=== PATIENT | female | born 1980 | race Caucasian/White ===

== ENCOUNTER 2019-09-20 16:37 | Outpatient (CLI) | payer OTHER, SELFPAY ==
--- NOTE | ~2019-09-20 | MM_ITS ---
EXAMINATION: MM screening maria luisa BI w patience HISTORY: Screening mammogram TECHNIQUE: Bilateral rotated lateral cc views. Craniocaudal and mediolateral oblique 3-D tomosynthesi s images were obtained and synthetic 2-D images were generated. CAD analysis was submitted and interp reted. COMPARISON: No prior mammogram is available for comparison at this institution. BREAST PARENCHYMAL COMPOSITION: The breasts are heterogeneously dense, which may obscure small masses . FINDINGS: There is an asymmetric approximately 1.3 cm opacity in the posterior superior aspect of the left breast on MLO projection; diagnostic left mammogram and left breast ultrasound examination are recommended. A few punctate benign-appearing microcalcifications are noted. Otherwise no suspicious mass or architectural distortion, malignant calcification, skin thickening or retraction is evident. IMPRESSION: 1. 1.3 cm asymmetric opacity in the posterior superior left breast on craniocaudal view 2. Diagnostic left mammogram and left breast ultrasound examination are recommended. BI-RADS Category 0: Incomplete: Needs additional imaging evaluation... Reviewed, dictated and finalized at location A. GER INTERNAL IMPRESSION: 1. 1.3 cm asymmetric opacity in the posterior superior left breast on craniocau ewa view 2. Diagnostic left mammogram and left breast ultrasound examination are recomme nded. BI-RADS Category 0: Incomplete: Needs additional imaging evaluation...
== END 2019-09-20 16:38 | disposition home or self-care (01) ==
DX: Z12.31 Encounter for screening mammogram for malignant neoplasm of breast (principal); R92.8 Other abnormal and inconclusive findings on diagnostic imaging of breast
CPT/HCPCS: 77063; 77067

== ENCOUNTER 2019-10-21 12:44 | Outpatient (CLI) | payer OTHER, SELFPAY ==
--- NOTE | ~2019-10-21 | MMUS_ITS ---
EXAMINATION: MM diagnostic mammo unilat LT, US breast LT limited HISTORY: Left breast mass on screening mammogram TECHNIQUE: Additional 3-D tomosynthesis images of the left breast were performed and synthetic 2-D im ages were generated. CAD analysis was submitted and interpreted. High resolution limited left breast ultrasound was performed. COMPARISON: 09/20/2019, 09/12/2011 FINDINGS: MAMMOGRAPHIC FINDINGS: There is a 1.2 x 1.1 cm oval, low density, obscured mass in the far upper outer quadrant of the breas t at the 1:00 location 8 cm from the nipple. No associated architectural distortion or suspicious boubacar cification are identified. ULTRASOUND: There is a 1.5 x 0.5 cm oval, circumscribed, parallel, hypoechoic mass with no posterior features or internal vascularity at the 1:00 location in the far outer breast in the region of the mammographic f inding. There is a 5 mm cyst at the 12:00 location 2 cm from the nipple. An 8 mm x 2 mm oval, circums cribed, parallel, hypoechoic mass with no posterior features or internal vascularity is present at th e 2:00 location 9 cm from the nipple. Dilated subareolar ducts are noted. IMPRESSION: 1. Probably benign left breast masses. 2. Recommend 6 month follow-up left diagnostic mammogram and ultrasound. BI-RADS category 3, probably benign findings. Reviewed, dictated and finalized at location A. IMPRESSION: 1. Probably benign left breast masses. 2. Recommend 6 month follow-up left diagnostic mammogram and ultrasound. BI-RADS category 3, probably benign findings.
== END 2019-10-21 12:45 | disposition home or self-care (01) ==
DX: R92.8 Other abnormal and inconclusive findings on diagnostic imaging of breast (principal)
CPT/HCPCS: 76642; 77065

== ENCOUNTER 2020-11-18 14:35 | Emergency (ER) | payer OTHER, SELFPAY ==
[2020-11-18 14:49] VITALS: BP 143/86; PULSE 97; RESP 16; TEMP 37; O2SAT 100
--- NOTE | 2020-11-18 15:02 | ED.GENADULT ---
HPI - General Adult General Chief complaint: Dental/Oral Stated complaint: R FACIAL SWELLING Time Seen by Provider: 11/18/20 15:03 Source: patient and RN notes reviewed Mode of arrival: ambulatory Limitations: no limitations History of Present Illness HPI narrative: 39-year-old female presents with complaints of dental pain and swelling for 1 day. Dudley reports increasing RT sided facial swelling this morning. Tylenol, last on 11/17/2020. Denies any drainage. No fever. RT upper jaw swelling. No neck swelling. No limitation with speaking or swallowing. Tolerating po intake well. Has history of dental caries. Has not seen a dentist recently. No dental trauma. No oral lesions. Exacerbating factors consist of chewing on RT. No relieving factor. Upper dentures. LMP unknown due to IUD in place. Remains active. The patient reports she have not been diagnosed with COVID-19. The patient reports she received Deshawn-Deshawn COVID-19 vaccine 10/15/2020. The patient reports she is not waiting for the results of a COVID-19 lab test. The patient reports she do not have chills, weakness, or fatigue. The patient reports she do not have a new or worsening cough or shortness of breath. Denies chest pain. The patient reports she do not have any rhinorrhea, congestion, sore throat, loss of taste or smell, nausea, vomiting, abdominal pain, and diarrhea. Denies recent traveling. Denies concerns for COVID-19 or exposures been home with limited outdoor exposure except for essential household needs, work, and return home. At this time, patient is not suspected of having COVID-19. Some parts of this dictation were generated by voice recognition software and may contain typographical and/or grammatical inaccuracies. Related Data Home Medications Medication Instructions Recorded Confirmed chlorpheniramine 2 2 tablet PO ONCE 07/11/19 02/09/20 mg-phenylephrine 5 mg-acetaminophen 325 mg tablet levonorgestrel 20 mcg/24 hours (6 1 device I-UTERINE ONCE 07/11/19 02/09/20 yrs) 52 mg intrauterine device levothyroxine 88 mcg tablet 88 mcg PO DAILY 07/11/19 02/09/20 metoprolol succinate 50 mg capsule 50 mg PO QPM each 07/11/19 02/09/20 sprinkle, ext. release 24 hr Allergies Allergy/AdvReac Type Severity Reaction Status Date / Time No Known Allergies Allergy Verified 11/18/20 14:40 Review of Systems Review of Systems: Narrative: CONSTITUTIONAL: Denies fever, chills, sweats. EYES: Denies visual changes, redness, discharge. ENT: Denies rhinorrhea, congestion, sore throat, otalgia. Complains of RT upper dental pain and swelling. CARDIOVASCULAR: Denies chest pain, palpitations, edema. RESPIRATORY: Denies dyspnea, wheezing, cough. GASTROINTESTINAL: Denies abdominal pain, nausea, vomiting, diarrhea. SKIN: Denies rash or itching. MUSCULOSKELETAL: Denies acute back pain, joint pain, or myalgia. NEUROLOGIC: Denies numbness or focal weakness. PSYCHIATRIC: Denies anxiety or depression. All systems reviewed & are unremarkable except as noted in HPI and below. FOR[facility]LY [facility] Past Medical History Medical History (Updated 11/26/20 @ 21:11 by BRIDGER Clements) Arm fracture, right compound fracture Essential (primary) hypertension History of gastroesophageal reflux (GERD) Hypothyroid Leg fracture, right compound fracture Nicotine dependence Surgical History Surgical History (Updated 11/18/20 @ 15:15 by BRIDGER Clements) Hx of appendectomy Family History Family History Father Hypertension Family history of chronic obstructive pulmonary disease Grandparent Family history of pancreatic cancer Mother Family history of malignant neoplasm of breast in first degree relative Sibling Breast cancer Social History Social History (Updated 11/18/20 @ 15:18 by BRIDGER Clements) Smoking packs per day: 0.5 Smoking cigarettes per day: 10.0
== END 2020-11-18 15:30 | disposition home or self-care (01) ==
PROVIDERS: Emergency Provider Nurse Practitioner Family
DX: K05.10 Chronic gingivitis, plaque induced (principal); F17.210 Nicotine dependence, cigarettes, uncomplicated; I10 Essential (primary) hypertension; K21.9 Gastro-esophageal reflux disease without esophagitis; E03.9 Hypothyroidism, unspecified
CPT/HCPCS: 99213; G0463

== ENCOUNTER 2022-01-17 18:24 | Emergency (ER) | payer OTHER, SELFPAY ==
[2022-01-17 18:29] VITALS: BP 160/80; PULSE 91; RESP 16; TEMP 36.3; O2SAT 100
--- NOTE | 2022-01-17 19:03 | ED.EYEPROB ---
HPI - Eye Problem General Chief complaint: Eye Problems Stated complaint: R EYELID SWELLING/DRAINAGE Time Seen by Provider: 01/17/22 19:03 Source: patient, RN notes reviewed and old records reviewed Mode of arrival: ambulatory Limitations: no limitations History of Present Illness HPI Narrative: 41 year old female with complaints of swelling with redness of right eye with red dot on inner upper eyelid for the past 2 days with increase swelling noted today. Patient denies any injury to her right eye or any known foreign body to her eye or any sting or bite to her eyelid. Patient denies any change in vision.. Related Data Home Medications Medication Instructions Recorded Confirmed chlorpheniramine 2 2 tablet PO ONCE 07/11/19 02/09/20 mg-phenylephrine 5 mg-acetaminophen 325 mg tablet (Allergy Relief Multi-Symptom) levonorgestrel 20 mcg/24 hours (7 1 device intrauterine ONCE 07/11/19 02/09/20 yrs) 52 mg intrauterine device (Mirena) levothyroxine 88 mcg tablet 88 mcg PO DAILY 07/11/19 02/09/20 metoprolol succinate 50 mg capsule 50 mg PO QPM 07/11/19 02/09/20 sprinkle, ext. release 24 hr Allergies Allergy/AdvReac Type Severity Reaction Status Date / Time No Known Allergies Allergy Verified 11/18/20 14:40 Review of Systems Review of Systems: CONSTITUTIONAL: Denies fever, chills, or sweats. EYES: Denies visual changes, redness, or discharge positive for some swelling around right eye with swelling to upper right eyelid with small red lesion to inner upper eye lid with no drainage noted, no change in vision. ENT: Denies rhinorrhea, congestion, sore throat, or otalgia. CARDIOVASCULAR: Denies chest pain, palpitations, or edema. RESPIRATORY: Denies cough or dyspnea. GASTROINTESTINAL: Denies abdominal pain, nausea, vomiting, or diarrhea. GENITOURINARY: Denies dysuria or hematuria. SKIN: Denies rash or itching. MUSCULOSKELETAL: Denies back pain, joint pain, or myalgia. NEUROLOGIC: Denies headache, numbness, or weakness. PSYCHIATRIC: Denies anxiety or depression. [facility] Past Medical History Medical History Arm fracture, right compound fracture Essential (primary) hypertension History of gastroesophageal reflux (GERD) Hypothyroid Leg fracture, right compound fracture Nicotine dependence Surgical History Surgical History Hx of appendectomy Family History Family History Father Hypertension Family history of chronic obstructive pulmonary disease Grandparent Family history of pancreatic cancer Mother Family history of malignant neoplasm of breast in first degree relative Sibling Breast cancer Social History Social History Smoking packs per day: 0.5 Smoking cigarettes per day: 10.0 Years smoked: 25 Smoking pack-years: 12.50 Smoking status: Current every day smoker Tobacco type: cigarettes Second hand tobacco smoke exposure: No Additional smoking assessment comments: Dudley reports smoking since she was 14 years old Alcohol intake: current Substance use: never Substance use type: does not use Gender identity (if verbalized by the patient): Female Comments At time of signature, agree with nursing past medical, surgical, social and family history. There is no relevant family history pertinent to the presenting complaint Exam Narrative: GENERAL: Well-appearing, well-nourished, and in no acute distress. HEAD: Normocephalic, atraumatic. EYES: PERRLA and EOMI. swelling to right upper eyelid small red dot noted to inner aspect of right upper eyelid, patient denies any known bug bite or sting.no change in vision, no drainage noted ENT: Nares clear, no rhinorrhea or epistaxis. Mucous membranes moist. NECK: Supple. no lymphadenopathy CHEST: Clear to auscu
== END 2022-01-17 19:26 | disposition home or self-care (01) ==
PROVIDERS: Emergency Provider Registered Nurse
DX: H02.841 Edema of right upper eyelid (principal); L98.9 Disorder of the skin and subcutaneous tissue, unspecified; F17.210 Nicotine dependence, cigarettes, uncomplicated; I10 Essential (primary) hypertension; K21.9 Gastro-esophageal reflux disease without esophagitis; E03.9 Hypothyroidism, unspecified
CPT/HCPCS: 99213; G0463

== ENCOUNTER 2023-02-27 15:21 | Emergency (ER) | payer OTHER, SELFPAY ==
--- NOTE | 2023-02-27 15:26 | ED.URI ---
HPI - URI/Sore Throat General Chief Complaint: Upper Respiratory Infection Stated Complaint: SORE THROAT/EARACHE Time Seen by Provider: 02/27/23 15:25 Source: patient Mode of arrival: ambulatory Limitations: no limitations History of Present Illness HPI Narrative: Dudley is a 42-year-old female patient presenting to the clinic today with complaints of sore throat, cough, runny nose, bilateral earache times 3-4 days. She reports that her 12-year-old daughter at home has strep. MD elicited complaint: cough, sore throat, rhinorrhea and nasal congestion Related Data Home Medications Medication Instructions Recorded Confirmed levothyroxine 88 mcg tablet 88 mcg PO DAILY 07/11/19 02/27/23 etonogestrel 68 mg subdermal 1 implant subdermal ONCE 02/24/22 02/27/23 implant (Nexplanon) omeprazole 20 mg capsule,delayed 20 mg PO DAILY 02/24/22 02/27/23 release Allergies Allergy/AdvReac Type Severity Reaction Status Date / Time No Known Allergies Allergy Verified 08/26/22 16:05 Review of Systems Review of Systems: Pertinent positives per HPI. Patient denies any fever, chills, rash, headache, visual changes, dizziness, shortness of breath, chest pain, palpitations, nausea, vomiting, diarrhea, constipation, abdominal pain, or any urinary issues. FOR[facility]LY [facility], [facility] Past Medical History Medical History Arm fracture, right compound fracture Essential (primary) hypertension Former smoker GERD without esophagitis History of gastroesophageal reflux (GERD) Hyperlipidemia Hypothyroid Leg fracture, right compound fracture Surgical History Surgical History H/O knee surgery (~1989) Hx of appendectomy (~1986) Family History Family History Father Hypertension Family history of chronic obstructive pulmonary disease Grandparent Family history of pancreatic cancer Mother Family history of malignant neoplasm of breast in first degree relative Sibling Breast cancer Social History Social History Social History: Dudley is single, she has an 11 year old daughter. 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 13 pack-year smoking history, he quit smoking in 2020. Smoking packs per day: 0.5 Smoking cigarettes per day: 10.0 Years smoked: 25 Smoking pack-years: 12.50 Smoking status: Former smoker Tobacco type: e-cigarettes/vaping Second hand tobacco smoke exposure: No Smoking end date: 08/10/20 Additional smoking assessment comments: Dudley reports smoking since she was 14 years old Alcohol intake: current Substance use: never Substance use type: does not use Lack of Transportation: No Lack of Food: Never True Current Housing: I Have Housing Concerned About Future Housing: No Difficulty Paying Gas/Electric Bills: No Difficulty Paying for Meds: No Currently Unemployed: No Education: Trade/Vocational Certificate Difficulty w/ Childcare or Family Care: No Living arrangements: with family Additional living arrangements comments: Daughter Occupation/Education: occupation Additional occupation/education comments: [employer] / [employer] Gender identity (if verbalized by the patient): Female Agree to blood products: Yes Comments At the time of my signature, I reviewed and agree with the nursing past medical, surgical, social, and family history. There is no relevant family history pertinent to the patient complaint. Exam Narrative: General: Well-developed, well nourished, in no apparent distress Head: Normocephalic, atraumatic Eyes: Pupils equally round and reactive to light bilaterally, EOM intact, sclera and conjunctive clear, no discharge, lids normal Ears: TMs intact and congested, ear canals clear, no drainage, grossly hearing normal. Nose: Na
[2023-02-27 15:40] VITALS: BP 163/85; PULSE 94; RESP 16; TEMP 36.4; O2SAT 99
== END 2023-02-27 15:56 | disposition home or self-care (01) ==
PROVIDERS: Emergency Provider Nurse Practitioner Family
DX: J06.9 Acute upper respiratory infection, unspecified (principal); J02.9 Acute pharyngitis, unspecified; H92.03 Otalgia, bilateral; Z87.891 Personal history of nicotine dependence; I10 Essential (primary) hypertension; K21.9 Gastro-esophageal reflux disease without esophagitis; E78.5 Hyperlipidemia, unspecified; E03.9 Hypothyroidism, unspecified
CPT/HCPCS: 87081; 87880; 99213; G0463

== ENCOUNTER 2023-11-19 15:20 | Outpatient (CLI) | payer OTHER, SELFPAY ==
--- NOTE | ~2023-11-19 | US_ITS ---
EXAMINATION: US carotid duplex BI DATE: 11/19/2023 15:40 INDICATION: Other specified symptoms and signs involving the circulatory system. TECHNIQUE: Grayscale, color Doppler, and pulsed Doppler images of the cervical carotid arteries were obtained. The degree of vessel stenosis is placed in one of the following categories: normal, <50%, 5 0-69%, >=70% but less than near-occlusion, near-occlusion, or total occlusion. Note that percent sten osis relative to normal distal artery lumen diameter is indirectly measured from velocity measurement s as described by Finesse, et al. Radiology 2003; 229:340-346. COMPARISON: None. FINDINGS: RIGHT: The right common carotid artery (CCA) peak systolic velocity (PSV) is 78 cm/s. The right internal car otid artery (ICA) PSV is 368 cm/s. The right ICA end-diastolic velocity (EDV) is 135 cm/s. The right ICA/CCA PSV ratio is 4.7. Grayscale and color Doppler images yield an estimate of >=50% diameter redu ction from plaque in the ICA. There is antegrade flow in the right vertebral artery. LEFT: The left CCA PSV is 105 cm/s. The left ICA PSV is 116 cm/s. The left ICA EDV is 42 cm/s. The left ICA /CCA PSV ratio is 1.1. Grayscale and color Doppler images yield an estimate of <50% diameter reductio n from plaque in the ICA. There is antegrade flow in the left vertebral artery. IMPRESSION: 1. >=70% stenosis in the right internal carotid artery, but less than near occlusion. 2. <50% stenosis in the left internal carotid artery. Reviewed, dictated and finalized at location A. IMPRESSION: 1. >=70% stenosis in the right internal carotid artery, but less than near occl usion. 2. <50% stenosis in the left internal carotid artery.
== END 2023-11-19 15:21 ==
PROVIDERS: PCP Nurse Practitioner Family; Visit Provider Nurse Practitioner Family
DX: R09.89 Other specified symptoms and signs involving the circulatory and respiratory systems (principal); I65.23 Occlusion and stenosis of bilateral carotid arteries
CPT/HCPCS: 93880

== ENCOUNTER 2024-04-04 17:46 | Emergency (ER) | payer OTHER, SELFPAY ==
[2024-04-04] VITALS (8 sets, daily range): BP systolic 104–140; BP diastolic 61–88; PULSE 59–113; RESP 15–20; TEMP 36.4–36.6; O2SAT 99–100
--- NOTE | ~2024-04-04 | CT_ITS ---
EXAMINATION: CTA brain carotid DATE: 04/04/2024 21:40 INDICATION: Syncope. Recent carotid endarterectomy. TECHNIQUE: Computed tomographic angiography (CTA) of the head was performed with 100 mL Omnipaque-350 intravenous contrast. CTA of the neck was performed with intravenous contrast. Automated exposure co ntrol and iterative reconstruction technique were employed. The dose-length product was 941.30 mGy-cm . Maximum intensity projection and volume rendered 3D-reconstructions were created by the [employer] t on a separate workstation. COMPARISON: Head CT 04/04/24 FINDINGS: HEAD CTA: There is no intracranial hemorrhage, acute infarction, or abnormal intracranial mass lesion . The ventricles are normal in size. The orbits are normal. The paranasal sinuses are clear. The mast oid air cells are normal. The vertebral arteries are codominant. There is no significant stenosis of basilar artery or the posterior cerebral arteries. There is no significant stenosis of the intracrani al internal carotid arteries. Anterior communicating artery is normal. The anterior cerebral arteries and proximal left middle cerebral artery are small with numerous small collateral arteries. There is no aneurysm. NECK CTA: There is mild scarring at the lung apices. There is mild emphysema. There are surgical enamorado ges of right-sided carotid endarterectomy with intimal flap in the distal common carotid artery. Ther e is mild plaque in proximal left internal carotid artery. There is 0% stenosis of the proximal right internal carotid artery relative to normal distal artery lumen diameter (NASCET criteria). There is 0% stenosis of the proximal left internal carotid artery relative to normal distal artery lumen diame ter. There is mild cervical spondylosis. IMPRESSION: 1. Small anterior cerebral arteries and left middle cerebral artery with numerous collaterals (moyamo ya pattern). 2. 0% stenosis of the proximal internal carotid arteries relative to normal distal artery lumen diame ters (NASCET criteria). 3. Surgical changes of right-sided carotid endarterectomy with intimal flap in the common carotid art mann. Reviewed, dictated and finalized at location A. IMPRESSION: 1. Small anterior cerebral arteries and left middle cerebral artery with sharla us collaterals (moyamoya pattern). 2. 0% stenosis of the proximal internal carotid arteries relative to normal dis jaylene artery lumen diameters (NASCET criteria). 3. Surgical changes of right-sided carotid endarterectomy with intimal flap in the common carotid artery.
--- NOTE | ~2024-04-04 | XR_ITS ---
EXAMINATION: XR chest 2V DATE: 04/04/2024 19:15 INDICATION: Syncope. TECHNIQUE: Frontal and lateral views of the chest were obtained. COMPARISON: None. FINDINGS: There is no pneumonia, pleural effusion, or pneumothorax. The heart size is normal. IMPRESSION: 1. No acute cardiopulmonary disease. Reviewed, dictated and finalized at location A.
--- NOTE | ~2024-04-04 | CT_ITS ---
EXAMINATION: CT brain wo con DATE: 04/04/2024 19:19 INDICATION: Syncope. TECHNIQUE: Computed tomography (CT) of the head was performed without intravenous contrast. The mA wa s adjusted according to patient size. Iterative reconstruction technique was employed. The dose-lengt h product was 681.00 mGy-cm. COMPARISON: None FINDINGS: There is no intracranial hemorrhage, acute infarction, or abnormal intracranial mass lesion . The ventricles are normal in size. The orbits are normal. The paranasal sinuses are clear. The mast oid air cells are normal. IMPRESSION: 1. Normal brain. Reviewed, dictated and finalized at location A. IMPRESSION: 1. Normal brain.
--- NOTE | 2024-04-04 17:56 | ECG_ITS ---
Test Date: 2024-04-04 18:02:44 Measurements Intervals [place] Rate: 60 P: 58 NC: 131 QRS: 15 QRSD: 96 T: 30 QT: 403 QTc: 403 Interpretive Statements SINUS RHYTHM POSSIBLE LEFT ATRIAL ENLARGEMENT [-0.1mV P WAVE IN V1/V2] INCOMPLETE RIGHT BUNDLE BRANCH BLOCK No previous ECG available for comparison Electronically Signed On 04-05-2024 15:37:43 CDT by Jayesh Dominguez M.D.
--- NOTE | 2024-04-04 17:56 | ED.SYNCOPE ---
HPI - Syncope General Chief Complaint: Syncope <Shanice Jonas PA-C - Last Filed: 04/05/24 19:02> Stated Complaint: CAROTID ENDARECTOMY SYNCOPE X 2 <Shanice Jonas PA-C - Last Filed: 04/05/24 19:02> Time Seen by Provider: 04/04/24 17:56 <Shanice Jonas PA-C - Last Filed: 04/05/24 19:02> Focused HPI: This is a 43 year old female that presents to the ER for syncope. Reports she just got out of the hospital yesterday after being admitted to [facility] for an endarterectomy. She has been feeling fatigued today. Reports she was at home and started to feel a little lightheaded and passed out. This happened one additional time which prompted her to be seen. Denies chest pain or shortness of breath currently. GENERAL: Well-appearing, well-nourished, and in no acute distress. HEAD: Normocephalic, atraumatic. CHEST: Clear to auscultation. ?No respiratory distress. HEART: Regular rate and rhythm.? NEURO: ?Alert and oriented x3. Patient screened in triage and initial orders placed.? ?Additional care and disposition to be based upon?diagnostic testing and treatment. <Shanice Jonas PA-C - Last Filed: 04/05/24 19:02> History of Present Illness HPI narrative: this is a 43-year-old female with a history of carotid stenosis, hypothyroidism, hypertension, hyperlipidemia, recent right carotid endarterectomy on 04/01/2024 at [facility] to presents to the emergency department for 3 syncopal episodes that occurred prior to my evaluation. Patient states today she was indication when she began having tunnel vision and lightheadedness, states she was seeing stars and passed out. She then woke up on the ground, got up and walked to the living room where she again experienced the same passed out again. She is unsure if she hit her head. She states when she was in the waiting room the same event occurred. She states she did not have any chest pain or short of breath surrounding the event. she denies injuries from collapse. She denies vision changes, focal numbness or weakness, difficulty swallowing. She does seem to have mildly slurred speech but her family at bedside the patient states this is not abnormal for her. She denies abdominal pain, dysuria hematuria, cough or congestion, fever. States the surgeon that performed the car added endarterectomy was Dr. Bass. She is taking plavix but is otherwise not anticoagulated. states she was discontinued off of her metoprolol during her admission at [facility] due to bradycardia on admission. <Karena Holland PA-C - Last Filed: 04/05/24 03:08> Related Data Home Medications: Home Medications Medication Instructions Recorded Confirmed levothyroxine 88 mcg tablet 88 mcg PO DAILY 07/11/19 11/17/23 etonogestrel 68 mg subdermal 1 implant subdermal ONCE 02/24/22 11/17/23 implant (Nexplanon) omeprazole 20 mg capsule,delayed 20 mg PO DAILY 02/24/22 11/17/23 release aspirin 81 mg tablet,delayed 81 mg PO DAILY 12/02/23 release (Adult Aspirin Regimen) atorvastatin 80 mg tablet mg PO DAILY 12/18/23 <Shanice Jonas PA-C - Last Filed: 04/05/24 19:02> Allergies/Adverse Reactions: Allergies Allergy/AdvReac Type Severity Reaction Status Date / Time No Known Allergies Allergy Verified 12/18/23 14:59 <Shanice Jonas PA-C - Last Filed: 04/05/24 19:02> Review of Systems Review of Systems: All systems reviewed & are unremarkable except as noted in HPI and below <Karena Holland PA-C - Last Filed: 04/05/24 03:08> [facility] Past Medical History Medical History: Medical History Arm fracture, right compound fracture Essential (primary) hypertension Former smoker GERD without esophagitis History of gastroesophageal reflux (GERD) Hyperlipidemia Hypothyroid Leg fracture, right compound fracture Sinusitis, acute <Shanice Jonas PA-C - Last Filed: 04/05/24 19:02>
[2024-04-04 18:26] LABS: Basophils Absolute Auto 0.1 K/mm3 (0.0-0.1); Basophils Percent Auto 0.7 % (0.2-1.2); Eosinophils Absolute Auto 0.2 K/mm3 (0-0.3); Eosinophils Percent Auto 2.4 % (0-4.4); Hematocrit 38.5 % (37.0-47.0); Hemoglobin 12.6 g/dL (12.0-15.0); Immature Granulocyte Absolute 0.03 K/mm3 (0.00-0.031); Immature Granulocyte Percent A 0.4 % (0-0.5); Lymphocytes Absolute Auto 3.04 K/mm3 (0.9-3.2); Lymphocytes Percent Auto 40.4 % (18.3-44.2); Mean Corpuscular HGB Conc 32.7 g/dl (32-36); Mean Corpuscular Hemoglobin 29.1 pg (26-34); Mean Corpuscular Volume 88.9 fl (80-100); Mean Platelet Volume 10.8 fl (7.4-10.4); Monocytes Absolute Auto 0.6 K/mm3 (0.1-0.6); Monocytes Percent Auto 7.8 % (2.6-8.5); Neutrophils Absolute Auto 3.6 K/mm3 (1.3-6.7); Neutrophils Percent Auto 48.3 % (45.5-73.1); Platelet Count Result 291 k/mm3 (150-375); Red Blood Count 4.33 M/mm3 (4.2-5.4); Red Cell Distribution Width 12.4 % (11.5-14.5); White Blood Count 7.5 K/mm3 (4.5-10.0)
[2024-04-04 18:42] LABS: Alanine Aminotransferase 17 U/L (6-35); Albumin Level 3.9 g/dL (3.5-5.1); Alkaline Phosphatase 76 U/L (38-126); Anion Gap 10 mmol/L (4-12); Aspartate Amino Transferase 28 U/L (14-36); Bilirubin,Total 0.4 mg/dL (0.2-1.3); Blood Urea Nitrogen 14 mg/dL (7-17); Calcium 8.4 mg/dL (8.4-10.2); Carbon Dioxide 26 mmol/L (22-30); Chloride 102 mmol/L (98-107); Estimated CRCL calculation 52 ml/min; Estimated Glomerular Filt Rate > 60; Glucose 129 mg/dL (65-110); Potassium 3.3 mmol/L (3.4-5.0); Sodium 138 mmol/L (137-145)
[2024-04-04 18:47] LABS: D Dimer 0.41 ug/mL (<0.48)
[2024-04-04 18:53] LABS: Troponin I < 0.012 ng/mL (0.000-0.034)
[2024-04-04 20:01] LABS: Magnesium 1.9 mg/dL (1.6-2.3)
[2024-04-04 20:38] LABS: BEDSIDEPREGUCG Negative
[2024-04-04] MEDS: KCL 20 MEQ/SW 100 ML 100 ML 50 MEQ IVPB (20:48)
[2024-04-04] MEDS: SODIUM CHLORIDE 0.9% IV 1,000 ML 999 ML IV CONT ×2 (20:58→22:23)
--- NOTE | 2024-04-04 20:58 | PC.NURSE ---
Patient states that potassium drip is burning and is in tears. Rate slowed down to 25mL/hr and notified EDP AUDREY Nelson who VRBO 1L NS.
--- NOTE | 2024-04-04 21:18 | ECG_ITS ---
Test Date: 2024-04-04 20:25:09 Measurements Intervals [place] Rate: 56 P: 67 ME: 133 QRS: 29 QRSD: 93 T: 57 QT: 420 QTc: 406 Interpretive Statements SINUS BRADYCARDIA INCOMPLETE RIGHT BUNDLE BRANCH BLOCK Compared to ECG 04/04/2024 18:02:44 NO SIGNIFICANT CHANGES Electronically Signed On 04-05-2024 15:39:41 CDT by Jayesh Dominguez M.D.
[2024-04-04 22:09] LABS: Troponin I < 0.012 ng/mL (0.000-0.034)
[2024-04-04 23:40] LABS: Free T4 Free Thyroxine Reflex 2.35 ng/dL (0.78-2.19)
[2024-04-05] VITALS (14 sets, daily range): BP systolic 103–128; BP diastolic 59–89; PULSE 58–108; RESP 12–20; TEMP 36.6–36.8; O2SAT 99–100
--- NOTE | 2024-04-05 04:54 | PC.NURSE ---
[facility] center called and advised that patient has been accepted to [facility], just waiting on bed assignment. Notified EDP Dr. Mendez
[2024-04-05] MEDS: LEVOTHYROXINE SODIUM 88 MCG TABLET PO (06:39)
[2024-04-05] MEDS: BISACODYL 5 MG TABLET EC PO (08:16)
[2024-04-05] MEDS: ATORVASTATIN 40 MG TABLET 80 MG PO (09:01)
[2024-04-05] MEDS: ASPIRIN 81 MG ENTERIC TABLET PO (09:09)
== END 2024-04-05 12:51 | disposition left against medical advice (07) ==
PROVIDERS: Physician Assistant; Emergency Provider Physician Assistant; PCP Nurse Practitioner Family
DX: R55 Syncope and collapse (principal); Z98.62 Peripheral vascular angioplasty status; I10 Essential (primary) hypertension; K21.9 Gastro-esophageal reflux disease without esophagitis; E03.9 Hypothyroidism, unspecified; E78.5 Hyperlipidemia, unspecified
CPT/HCPCS: 36415; 70450; 70496; 70498; 71046; 80053; 81025; 83735; 84439; 84443; 84484; 85025; 85380; 93005; 96361; 96365; 96366; 99284; A9270; J3480; J7030; Q9967